=== PATIENT | male | born 1990 | race Caucasian/White ===

== ENCOUNTER 2017-09-20 09:07 | Observation (INO) | payer BC, OTHER ==
[2017-09-20] MEDS ORDERED: Ondansetron 4 MG/2 ML SDV IVPUSH ONE (09:45)
[2017-09-20] MEDS ORDERED: Sodium Chloride 0.9% 1,000 ML IV ONE ×2 (09:46→12:23)
[2017-09-20] MEDS ORDERED: Ondansetron 4 MG/2 ML SDV ONE (09:53)
--- NOTE | 2017-09-20 10:20 | EDM.PDOC ---
ED HPI GENERAL MEDICAL PROBLEM - General Chief Complaint: Gastrointestinal Problem Stated Complaint: VOMITING Time Seen by Provider: 09/20/17 09:49 Source of Information: Reports: Patient History Limitations: Reports: No Limitations - History of Present Illness INITIAL COMMENTS - FREE TEXT/NARRATIVE: The patient states that he has type 1 diabetes. He is on an insulin pump, and Accu-Cheks 3-5 times a day with normal preprandial blood glucoses of 100-130 and normal postprandial blood glucoses around 170. He states that he developed nausea, vomiting, and watery diarrhea this past 09/16/2017. He was seen at an emergency department in [place], where a CT scan of the abdomen and pelvis was negative for appendicitis. He was given Zofran and Imodium, which he took for about 2 days. He states that he was able to return to work yesterday, 09/19/2017, however, last night he developed a small amount of nausea and emesis. This was much worse this morning. He has not had a fever, although he has had generalized abdominal pain associated with his emesis. He also developed a dry cough today, and commented that he had an increased volume of urine today. He has not had a bowel movement over the past 3 days. The patient states that he has had similar symptoms many times in the past, which essentially resolved after he had a cholecystectomy in 2014. He has had DKA in the past, and states that his current symptoms, other than the emesis, are not consistent with prior episodes of DKA. The patient's PCP is Jesika Story. His Die Machine Operator is Dr. Villalba, in [place]. Abdomen Pain Score (Numeric/FACES): 4 - Related Data Allergies Allergy/AdvReac Type Severity Reaction Status Date / Time No Known Allergies Allergy Verified 09/01/14 16:14 Home Meds: Home Meds Famotidine [Pepcid] 20 mg PO DAILY PRN 08/19/14 [History] Insulin Aspart [NovoLOG] 0 units SUBCUT ASDIRECTED 09/20/17 [History] Ondansetron [Zofran ODT] 4 mg SL Q8H PRN 09/20/17 [History] Past Medical History Gastrointestinal History: Reports: GERD Psychiatric History: Reports: Depression Endocrine/Metabolic History: Reports: Diabetes, Type I, Obesity/BMI 30+ - Past Surgical History HEENT Surgical History: Reports: Myringotomy w Tube(s) (bilateral), Tonsillectomy GI Surgical History: Reports: Cholecystectomy (09/02/2014) Musculoskeletal Surgical History: Reports: Other (See Below) (Partial amputation right fifth finger) Social & Family History - Tobacco Use Smoking Status *Q: Never Smoker - Caffeine Use Caffeine Use: Reports: Tea - Alcohol Use Alcohol Use History: Yes Days Per Week of Alcohol Use: 0 Number of Drinks Per Day: 0 Total Drinks Per Week: 0 Alcohol Use Frequency: Socially - Recreational Drug Use Recreational Drug Use: No - Living Situation & Occupation Living situation: Reports: , with Spouse 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 ED EXAM, GENERAL - Physical Exam Exam: See Below Exam Limited By: No Limitations General Appearance: Alert, WD/WN, No Apparent Distress Eye Exam: Bilateral Eye: Normal Inspection Ears: Normal External Exam, Hearing Grossly Normal Nose: Normal Inspection, No Blood Throat/Mouth: Normal Inspection, Normal Lips, Normal Voice, No Airway Compromise Head: Atraumatic, Normocephalic Neck: Normal Inspection, Full Range of Motion Respiratory/Chest: No Respiratory Distress, Lungs Clear, Normal Breath Sounds, No Accessory Muscle Use Cardiovascular: Normal Peripheral Pulses, Regular Rate, Rhythm, No Gallop, No JVD, No Murmur, No Rub Peripheral Pulses: 4+: Radial (L), Radial (R) GI/Abdominal: Normal Bowel Sounds, Soft, Non-Tender, No Organomegaly, No Distention, No Abnormal Bruit, No Mass, Other (Obese) (Male) Exam: Deferred Rectal (Males) Exam: Deferred Back Exam: Normal Inspection, Full Range of Motion, NT Extremities: Normal Inspection, Normal Range of Motion, No Pedal Edema, Normal Capillary Refill Neurological: Alert, Oriented, Normal Cognition, No Motor/Sensory Deficits Psychiatric: Normal Affect Skin Exam: Warm, Dry, Intact, Normal Color, No Rash EKG INTERPRETATION EKG Date: 09/20/17 Time: 10:09 Rhythm: NSR Rate (Beats/Min): 67 [place]: Normal P-Wave: Present QRS: Normal ST-T: Normal QT: Normal Comparison: NA - No Prior EKG Course - Vital Signs Last Recorded V/S: Last Vital Signs Temp 36.6 C 09/20/17 09:20 Pulse 70 09/20/17 09:20 Resp 16 09/20/17 09:20 BP 133/94 H 09/20/17 09:20 Pulse Ox 99 09/20/17 09:20 Orthostatic Blood Pressure [ 146/85 Standing] Orthostatic Blood Pressure [ 142/93 Supine] - Orders/Labs/Meds Orders: Active Orders 24 hr Category Date Time Status EKG Documentation Completion [RC] STAT Care 09/20/17 09:53 Active Orthostatic Vital Signs [RC] STAT Care 09/20/17 09:53 Active Orthostatic Vital Signs [RC] STAT Care 09/20/17 11:50 Active CBC WITH MANUAL DIFF [HEME] Stat Lab 09/20/17 09:25 Results CULTURE BLOOD [BC] Stat Lab 09/20/17 10:19 Received CULTURE BLOOD [BC] Stat Lab 09/20/17 10:38 Received UA W/MICROSCOPIC [URIN] Stat Lab 09/20/17 09:30 Ordered Sodium Chloride 0.9% [Normal Saline] 1,000 ml Med 09/20/17 12:23 Ordered IV ONETIME Blood Culture x2 Reflex Set [OM.PC] Stat Oth 09/20/17 09:54 Ordered Labs: Laboratory Tests 09/20/17 09/20/17 09/20/17 Range/Units 09:25 09:25 09:25 WBC 7.18 (4.23-9.07) K/mm3 RBC 5.11 (4.63-6.08) M/mm3 Hgb 16.0 (13.7-17.5) gm/L Hct 43.9 (40.1-51.0) % MCV 85.9 (79.0-92.2) fl MCH 31.3 (25.7-32.2) pg MCHC 36.4 H (32.2-35.5) g/dl RDW Std Deviation 36.1 (35.1-43.9) fL Plt Count 243 (163-337) K/mm3 MPV 11.9 (9.4-12.3) fl Puncture Site ABG pH (7.35-7.45) ABG pCO2 (35.0-45.0) mmHg ABG pO2 (80.0-100.0) mmHg ABG HCO3 (22.0-26.0) meq/L ABG O2 Saturation (96.0-97.0) % ABG Base Excess (-2-2.0) Ollie Test A-a Gradient mmHg O2 Delivery Device FiO2 (21.00-100.00) % Sodium 142 (136-145) mEq/L Potassium 3.9 (3.5-5.1) mEq/L Chloride 104 (98-107) mEq/L Carbon Dioxide 21 (21-32) mEq/L Anion Gap 20.9 H (5-15) BUN 11 (7-18) mg/dL Creatinine 1.1 (0.7-1.3) mg/dL Est Cr Clr Drug Dosing 106.92 mL/min Estimated GFR (MDRD) > 60 (>60) mL/min BUN/Creatinine Ratio 10.0 L (14-18) Glucose 242 H (74-106) mg/dL Lactic Acid (0.4-2.0) mmol/L Calcium 9.5 (8.5-10.1) mg/dL Magnesium 1.2 L (1.8-2.4) mg/dl Total Bilirubin 0.7 (0.2-1.0) mg/dL AST 42 H (15-37) U/L ALT 194 H (16-63) U/L Alkaline Phosphatase 90 (46-116) U/L Total Protein 7.5 (6.4-8.2) g/dl Albumin 4.5 (3.4-5.0) g/dl Globulin 3.0 gm/dL Albumin/Globulin Ratio 1.5 (1-2) Lipase 62 L (73-393) U/L Urine Color (Yellow) Urine Appearance (Clear) Urine pH (5.0-8.0) Ur Specific Garrett (1.005-1.030) Urine Protein (Negative) Urine Glucose (UA) (Negative) Urine Ketones (Negative) Urine Occult Blood (Negative) Urine Nitrite (Negative) Urine Bilirubin (Negative) Urine Urobilinogen (0.2-1.0) Ur Leukocyte Esterase (Negative) Urine RBC (0-5) /hpf Urine WBC (0-5) /hpf Ur Epithelial Cells (0-5) /hpf Urine Bacteria (FEW) /hpf Urine Mucus (FEW) /hpf Ketones 0.7 (0.0-0.3) mM 09/20/17 09/20/17 09/20/17 Range/Units 09:30 10:07 10:19 WBC (4.23-9.07) K/mm3 RBC (4.63-6.08) M/mm3 Hgb (13.7-17.5) gm/L Hct (40.1-51.0) % MCV (79.0-92.2) fl MCH (25.7-32.2) pg MCHC (32.2-35.5) g/dl RDW Std Deviation (35.1-43.9) fL Plt Count (163-337) K/mm3 MPV (9.4-12.3) fl Puncture Site Lt radial ABG pH 7.48 H (7.35-7.45) ABG pCO2 27.3 L (35.0-45.0) mmHg ABG pO2 90.0 (80.0-100.0) mmHg ABG HCO3 20.1 L (22.0-26.0) meq/L ABG O2 Saturation 98.2 H (96.0-97.0) % ABG Base Excess -1.6 (-2-2.0) Ollie Test Positive A-a Gradient 10 mmHg O2 Delivery Device Room air FiO2 21.00 (21.00-100.00) % Sodium (136-145) mEq/L Potassium (3.5-5.1) mEq/L Chloride (98-107) mEq/L Carbon Dioxide (21-32) mEq/L Anion Gap (5-15) BUN (7-18) mg/dL Creatinine (0.7-1.3) mg/dL Est Cr Clr Drug Dosing mL/min Estimated GFR (MDRD) (>60) mL/min BUN/Creatinine Ratio (14-18) Glucose (74-106) mg/dL Lactic Acid 1.4 (0.4-2.0) mmol/L Calcium (8.5-10.1) mg/dL Magnesium (1.8-2.4) mg/dl Total Bilirubin (0.2-1.0) mg/dL AST (15-37) U/L ALT (16-63) U/L Alkaline Phosphatase (46-116) U/L Total Protein (6.4-8.2) g/dl Albumin (3.4-5.0) g/dl Globulin gm/dL Albumin/Globulin Ratio (1-2) Lipase (73-393) U/L Urine Color Yellow (Yellow) Urine Appearance Clear (Clear) Urine pH 7.0 (5.0-8.0) Ur Specific [place] 1.020 (1.005-1.030) Urine Protein Negative (Negative) Urine Glucose (UA) Trace H (Negative) Urine Ketones 1+ H (Negative) Urine Occult Blood Negative (Negative) Urine Nitrite Negative (Negative) Urine Bilirubin Negative (Negative) Urine Urobilinogen 0.2 (0.2-1.0) Ur Leukocyte Esterase Negative (Negative) Urine RBC Not seen (0-5) /hpf Urine WBC 0-5 (0-5) /hpf Ur Epithelial Cells 0-5 (0-5) /hpf Urine Bacteria Not seen (FEW) /hpf Urine Mucus Not seen (FEW) /hpf Ketones (0.0-0.3) mM Meds: Medications Discontinued Medications Generic Name Dose Route Start Last Admin Trade Name Freq PRN Reason Stop Dose Admin Sodium Chloride 1,000 mls @ 999 mls/hr 09/20/17 09:46 09/20/17 09:52 Normal Saline IV 09/20/17 10:46 999 mls/hr ONETIME ONE Administration Magnesium Sulfate 2 gm/ Premix 50 mls @ 50 mls/hr 09/20/17 10:57 09/20/17 11: 03 IV 09/20/17 11:56 50 mls/hr ONETIME ONE Administration Ondansetron HCl 4 mg 09/20/17 09:45 09/20/17 09:50 Zofran IVPUSH 09/20/17 09:46 4 mg ONETIME ONE Administration Ondansetron HCl Confirm 09/20/17 09:53 09/20/17 09:52 Zofran Administered 09/20/17 09:54 Not Given Dose 4 mg .ROUTE .STK-MED ONE - Re-Assessments/Exams Free Text/Narrative Re-Assessment/Exam: 09/20/17 10:05 The patient is orthostatic. 09/20/17 10:27 The patient's ABG represents either an [id number]-apttkoy respiratory alkalosis or a combined respiratory alkalosis and metabolic acidosis. 09/20/17 10:58 Portable chest radiograph appears to be grossly normal. Cardiac silhouette is within normal limits. No pulmonary vascular congestion. No pleural effusions. No focal infiltrate. No pneumothorax. Formal read per the Radiologist pending. 09/20/17 10:58 The patient's chemistry panel reveals a bicarbonate of 21, with an anion gap of 20.9, blood glucose 242. His magnesium is depressed at 1.2. Lactic acid and ketones are still pending. I have ordered a 2 g Mg-rider. 09/20/17 11:09 The patient's serum ketone level has returned mildly elevated at 0.7, consistent with ketosis, but not with ketoacidosis. 09/20/17 11:41 The patient's lactic acid level is not elevated. 09/20/17 12:24 Following 1 L NS, the patient is no longer orthostatic. Test results discussed with the patient, his , and mother. Patient is no longer orthostatic, recommended placement into observation for further hydration. The patient has agreed. 09/20/17 12:[address] Flores at 12:26. He agreed to place the patient into observation. Departure - Departure Time of Disposition: 12:28 Disposition: Refer to Observation Condition: Fair Clinical Impression: Orthostasis, Hypomagnesemia, Hyperglycemia due to type 1 diabetes mellitus, High anion gap metabolic acidosis Nausea and vomiting Qualifiers: Vomiting type: unspecified Vomiting Intractability: unspecified Qualified Code( s): R11.2 - Nausea with vomiting, unspecified - Discharge Information - My Orders Last 24 Hours: My Active Orders 09/20/17 09:25 CBC WITH MANUAL DIFF [HEME] Stat 09/20/17 09:30 UA W/MICROSCOPIC [URIN] Stat 09/20/17 09:53 EKG Documentation Completion [RC] STAT Orthostatic Vital Signs [RC] STAT 09/20/17 09:54 Blood Culture x2 Reflex Set [OM.PC] Stat 09/20/17 10:19 CULTURE BLOOD [BC] Stat 09/20/17 10:38 CULTURE BLOOD [BC] Stat 09/20/17 11:50 Orthostatic Vital Signs [RC] STAT 09/20/17 12:23 Sodium Chloride 0.9% [Normal Saline] 1,000 ml IV ONETIME - Assessment/Plan Last 24 Hours: My Active Orders 09/20/17 09:25 CBC WITH MANUAL DIFF [HEME] Stat 09/20/17 09:30 UA W/MICROSCOPIC [URIN] Stat 09/20/17 09:53 EKG Documentation Completion [RC] STAT Orthostatic Vital Signs [RC] STAT 09/20/17 09:54 Blood Culture x2 Reflex Set [OM.PC] Stat 09/20/17 10:19 CULTURE BLOOD [BC] Stat 09/20/17 10:38 CULTURE BLOOD [BC] Stat 09/20/17 11:50 Orthostatic Vital Signs [RC] STAT 09/20/17 12:23 Sodium Chloride 0.9% [Normal Saline] 1,000 ml IV ONETIME
[2017-09-20] MEDS ORDERED: Magnesium Sulfate/Water 2 GM in Premix Bag 1 BAG IV ONE (10:57)
--- NOTE | 2017-09-20 11:11 | CR ---
Chest: Portable view of the chest was obtained. Comparison: No prior chest x-ray. Heart size and mediastinum are normal. Lungs are clear. Bony structures are grossly intact. Impression: 1. Nothing acute is seen on portable chest x-ray. Diagnostic code #1
[2017-09-20] MEDS ORDERED: 50% Dextrose in Water 50 ML Syringe IVPUSH PRN (15:14)
[2017-09-20] MEDS ORDERED: Insulin Aspart 100 Units/ML 3 ML Pen SUBCUT SCH (15:15)
[2017-09-20] MEDS ORDERED: Famotidine 20 MG Tab PO PRN (15:15)
[2017-09-20] MEDS: Dextrose 5%-0.9% NaCl 1,000 ML IV SCH (15:16)
[2017-09-20] MEDS ORDERED: LORazepam 2 MG/ML SDV IVPUSH PRN (15:16)
[2017-09-20] MEDS ORDERED: hydrALAZINE 20 MG/ML SDV IVPUSH PRN (15:16)
--- NOTE | 2017-09-20 15:17 | PCM.HP ---
H&P History of Present Illness - General Date of Service: 09/20/17 Admit Problem/Dx: Admission Diagnosis/Problem Admission Diagnosis/Problem Orthostasis Source of Information: Patient, Family, Provider, RN Notes Reviewed History Limitations: Reports: No Limitations - History of Present Illness Onset of Symptoms: Reports: Sudden Symptom Onset Date: 09/16/17 (nausea, vomiting, and diarrhea) Duration of Symptoms: Reports: Day(s): (4 days), Colic, Intermittent, Recurring (09/19 symptoms gone today they are back without diarrhea) Location: Reports: Abdomen (across upper abd and epigastric region) Quality: Reports: Sharp Severity: Moderate Improves with: Reports: Eating (improves at times with eating) Associated Symptoms: Reports: Nausea/Vomiting Abdomen Pain Score (Numeric/FACES): 4 - Related Data Allergies/Adverse Reactions: Allergies Allergy/AdvReac Type Severity Reaction Status Date / Time No Known Allergies Allergy Verified 09/01/14 16:14 Home Medications: Home Meds Famotidine [Pepcid] 20 mg PO DAILY PRN 08/19/14 [History] Insulin Aspart [NovoLOG] 0 units SUBCUT ASDIRECTED 09/20/17 [History] Ondansetron [Zofran ODT] 4 mg SL Q8H PRN 09/20/17 [History] Past Medical History HEENT History: Reports: Impaired Vision, Other (See Below) Other HEENT History: glasses Respiratory History: Reports: None Gastrointestinal History: Reports: GERD Musculoskeletal History: Reports: Fracture, Other (See Below) Other Musculoskeletal History: 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; right foot fracture Neurological History: Reports: Concussion, Neuropathy, Diabetic Psychiatric History: Reports: Depression Endocrine/Metabolic History: Reports: Diabetes, Type I, Obesity/BMI 30+ Hematologic History: Reports: None Dermatologic History: Reports: Other (See Below) Other Dermatologic History: vitiligo - Infectious Disease History Infectious Disease History: Reports: Shingles - Past Surgical History HEENT Surgical History: Reports: Myringotomy w Tube(s), Tonsillectomy GI Surgical History: Reports: Cholecystectomy Male Surgical History: Reports: None Endocrine Surgical History: Reports: None Neurological Surgical History: Reports: None Musculoskeletal Surgical History: Reports: Other (See Below) Other Musculoskeletal Surgeries/Procedures:: 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 Dermatological Surgical History: Reports: Skin Biopsy - Past Imaging History Past Imaging History: Reports: CAT Scan (CT of abdomen and pelvis in [place]) Social & Family History - Family History Cardiac: Reports: Aneurysm, Hypertension, Other (See Below) Other Cardiac Family History: abdominal - Tobacco Use Smoking Status *Q: Never Smoker Second Hand Smoke Exposure: No - Caffeine Use Caffeine Use: Reports: Coffee, Tea - Alcohol Use Days Per Week of Alcohol Use: 3 Number of Drinks Per Day: 2 Total Drinks Per Week: 6 Date of Last Drink: 09/15/17 Time of Last Drink: 19:00 - Recreational Drug Use Recreational Drug Use: No Drug Use in Last 12 Months: No - Living Situation & Occupation Living situation: Reports: , with Spouse 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) H&P Review of Systems - Review of Systems: Review Of Systems: See Below Gastrointestinal: Reports: Abdominal Pain, Flatus, Nausea, Vomiting Skin: Reports: Pallor Exam - Exam Exam: See Below - Vital Signs Vital Signs: Last Vital Signs Temp 36.6 C 09/20/17 13:33 Pulse 74 09/20/17 13:33 Resp 14 09/20/17 13:33 BP 130/78 09/20/17 13:33 Pulse Ox 100 09/20/17 13:33 Orthostatic Blood Pressure [ 146/85 Standing] Orthostatic Blood Pressure [ 142/93 Supine] Weight: 116.029 kg - Exam General: Alert, Oriented, Mild Distress HEENT: Conjunctiva Clear, Mucosa Moist & [place], Nares Patent, Normal Nasal Septum Neck: Supple, Trachea Midline, Full Range of Motion Lungs: Clear to Auscultation, Normal Respiratory Effort Cardiovascular: Regular Rate, Regular Rhythm, Normal S1, Normal S2 GI/Abdominal Exam: Normal Bowel Sounds, Soft, No Mass, Rebound, Tender (Male) Exam: Deferred Rectal (Males) Exam: Deferred Back Exam: Normal Inspection, Full Range of Motion Extremities: Normal Inspection, Normal Range of Motion, Non-Tender, No Pedal Edema, Normal Capillary Refill Peripheral Pulses: 2+: Dorsalis Pedis (L), Dorsalis Pedis (R), 3+: Radial (L), Radial (R) Skin: Warm, Dry, Intact Neurological: Cranial Nerves Intact, Strength Equal Bilateral, Normal Speech, Sensation Intact Neuro Extensive - Mental Status: Alert, Oriented x3, Normal Mood/Affect, Normal Cognition, Memory Intact Psychiatric: Alert, Normal Affect, Normal Mood - Patient Data Lab Results Last 24 hrs: Laboratory Results - last 24 hr 09/20/17 09/20/17 09/20/17 Range/Units 09:25 09:25 09:25 WBC 7.18 (4.23-9.07) K/mm3 RBC 5.11 (4.63-6.08) M/mm3 Hgb 16.0 (13.7-17.5) gm/L Hct 43.9 (40.1-51.0) % MCV 85.9 (79.0-92.2) fl MCH 31.3 (25.7-32.2) pg MCHC 36.4 H (32.2-35.5) g/dl RDW Std Deviation 36.1 (35.1-43.9) fL Plt Count 243 (163-337) K/mm3 MPV 11.9 (9.4-12.3) fl Neutrophils % (Manual) 75 H (40-60) % Band Neutrophils % 2 (0-10) % Lymphocytes % (Manual) 22 (20-40) % Atypical Lymphs % 0 % Monocytes % (Manual) 1 L (2-10) % Eosinophils % (Manual) 0 L (0.8-7.0) % Basophils % (Manual) 0 L (0.2-1.2) Platelet Estimate Adequate RBC Morph Comment Normal Puncture Site ABG pH (7.35-7.45) ABG pCO2 (35.0-45.0) mmHg ABG pO2 (80.0-100.0) mmHg ABG HCO3 (22.0-26.0) meq/L ABG O2 Saturation (96.0-97.0) % ABG Base Excess (-2-2.0) Ollie Test A-a Gradient mmHg O2 Delivery Device FiO2 (21.00-100.00) % Sodium 142 (136-145) mEq/L Potassium 3.9 (3.5-5.1) mEq/L Chloride 104 (98-107) mEq/L Carbon Dioxide 21 (21-32) mEq/L Anion Gap 20.9 H (5-15) BUN 11 (7-18) mg/dL Creatinine 1.1 (0.7-1.3) mg/dL Est Cr Clr Drug Dosing 106.92 mL/min Estimated GFR (MDRD) > 60 (>60) mL/min BUN/Creatinine Ratio 10.0 L (14-18) Glucose 242 H (74-106) mg/dL POC Glucose (70-105) mg/dL Lactic Acid (0.4-2.0) mmol/L Calcium 9.5 (8.5-10.1) mg/dL Magnesium 1.2 L (1.8-2.4) mg/dl Total Bilirubin 0.7 (0.2-1.0) mg/dL AST 42 H (15-37) U/L ALT 194 H (16-63) U/L Alkaline Phosphatase 90 (46-116) U/L Total Protein 7.5 (6.4-8.2) g/dl Albumin 4.5 (3.4-5.0) g/dl Globulin 3.0 gm/dL Albumin/Globulin Ratio 1.5 (1-2) Lipase 62 L (73-393) U/L Urine Color (Yellow) Urine Appearance (Clear) Urine pH (5.0-8.0) Ur Specific [place] (1.005-1.030) Urine Protein (Negative) Urine Glucose (UA) (Negative) Urine Ketones (Negative) Urine Occult Blood (Negative) Urine Nitrite (Negative) Urine Bilirubin (Negative) Urine Urobilinogen (0.2-1.0) Ur Leukocyte Esterase (Negative) Urine RBC (0-5) /hpf Urine WBC (0-5) /hpf Ur Epithelial Cells (0-5) /hpf Urine Bacteria (FEW) /hpf Urine Mucus (FEW) /hpf Ketones 0.7 (0.0-0.3) mM 09/20/17 09/20/17 09/20/17 Range/Units 09:25 09:30 10:07 WBC (4.23-9.07) K/mm3 RBC (4.63-6.08) M/mm3 Hgb (13.7-17.5) gm/L Hct (40.1-51.0) % MCV (79.0-92.2) fl MCH (25.7-32.2) pg MCHC (32.2-35.5) g/dl RDW Std Deviation (35.1-43.9) fL Plt Count (163-337) K/mm3 MPV (9.4-12.3) fl Neutrophils % (Manual) (40-60) % Band Neutrophils % (0-10) % Lymphocytes % (Manual) (20-40) % Atypical Lymphs % % Monocytes % (Manual) (2-10) % Eosinophils % (Manual) (0.8-7.0) % Basophils % (Manual) (0.2-1.2) Platelet Estimate RBC Morph Comment Puncture Site Lt radial ABG pH 7.48 H (7.35-7.45) ABG pCO2 27.3 L (35.0-45.0) mmHg ABG pO2 90.0 (80.0-100.0) mmHg ABG HCO3 20.1 L (22.0-26.0) meq/L ABG O2 Saturation 98.2 H (96.0-97.0) % ABG Base Excess -1.6 (-2-2.0) Ollie Test Positive A-a Gradient 10 mmHg O2 Delivery Device Room air FiO2 21.00 (21.00-100.00) % Sodium (136-145) mEq/L Potassium (3.5-5.1) mEq/L Chloride (98-107) mEq/L Carbon Dioxide (21-32) mEq/L Anion Gap (5-15) BUN (7-18) mg/dL Creatinine (0.7-1.3) mg/dL Est Cr Clr Drug Dosing mL/min Estimated GFR (MDRD) (>60) mL/min BUN/Creatinine Ratio (14-18) Glucose (74-106) mg/dL POC Glucose 239 H (70-105) mg/dL Lactic Acid (0.4-2.0) mmol/L Calcium (8.5-10.1) mg/dL Magnesium (1.8-2.4) mg/dl Total Bilirubin (0.2-1.0) mg/dL AST (15-37) U/L ALT (16-63) U/L Alkaline Phosphatase (46-116) U/L Total Protein (6.4-8.2) g/dl Albumin (3.4-5.0) g/dl Globulin gm/dL Albumin/Globulin Ratio (1-2) Lipase (73-393) U/L Urine Color Yellow (Yellow) Urine Appearance Clear (Clear) Urine pH 7.0 (5.0-8.0) Ur Specific [place] 1.020 (1.005-1.030) Urine Protein Negative (Negative) Urine Glucose (UA) Trace H (Negative) Urine Ketones 1+ H (Negative) Urine Occult Blood Negative (Negative) Urine Nitrite Negative (Negative) Urine Bilirubin Negative (Negative) Urine Urobilinogen 0.2 (0.2-1.0) Ur Leukocyte Esterase Negative (Negative) Urine RBC Not seen (0-5) /hpf Urine WBC 0-5 (0-5) /hpf Ur Epithelial Cells 0-5 (0-5) /hpf Urine Bacteria Not seen (FEW) /hpf Urine Mucus Not seen (FEW) /hpf Ketones (0.0-0.3) mM 09/20/17 Range/Units 10:19 WBC (4.23-9.07) K/mm3 RBC (4.63-6.08) M/mm3 Hgb (13.7-17.5) gm/L Hct (40.1-51.0) % MCV (79.0-92.2) fl MCH (25.7-32.2) pg MCHC (32.2-35.5) g/dl RDW Std Deviation (35.1-43.9) fL Plt Count (163-337) K/mm3 MPV (9.4-12.3) fl Neutrophils % (Manual) (40-60) % Band Neutrophils % (0-10) % Lymphocytes % (Manual) (20-40) % Atypical Lymphs % % Monocytes % (Manual) (2-10) % Eosinophils % (Manual) (0.8-7.0) % Basophils % (Manual) (0.2-1.2) Platelet Estimate RBC Morph Comment Puncture Site ABG pH (7.35-7.45) ABG pCO2 (35.0-45.0) mmHg ABG pO2 (80.0-100.0) mmHg ABG HCO3 (22.0-26.0) meq/L ABG O2 Saturation (96.0-97.0) % ABG Base Excess (-2-2.0) Ollie Test A-a Gradient mmHg O2 Delivery Device FiO2 (21.00-100.00) % Sodium (136-145) mEq/L Potassium (3.5-5.1) mEq/L Chloride (98-107) mEq/L Carbon Dioxide (21-32) mEq/L Anion Gap (5-15) BUN (7-18) mg/dL Creatinine (0.7-1.3) mg/dL Est Cr Clr Drug Dosing mL/min Estimated GFR (MDRD) (>60) mL/min BUN/Creatinine Ratio (14-18) Glucose (74-106) mg/dL POC Glucose (70-105) mg/dL Lactic Acid 1.4 (0.4-2.0) mmol/L Calcium (8.5-10.1) mg/dL Magnesium (1.8-2.4) mg/dl Total Bilirubin (0.2-1.0) mg/dL AST (15-37) U/L ALT (16-63) U/L Alkaline Phosphatase (46-116) U/L Total Protein (6.4-8.2) g/dl Albumin (3.4-5.0) g/dl Globulin gm/dL Albumin/Globulin Ratio (1-2) Lipase (73-393) U/L Urine Color (Yellow) Urine Appearance (Clear) Urine pH (5.0-8.0) Ur Specific [place] (1.005-1.030) Urine Protein (Negative) Urine Glucose (UA) (Negative) Urine Ketones (Negative) Urine Occult Blood (Negative) Urine Nitrite (Negative) Urine Bilirubin (Negative) Urine Urobilinogen (0.2-1.0) Ur Leukocyte Esterase (Negative) Urine RBC (0-5) /hpf Urine WBC (0-5) /hpf Ur Epithelial Cells (0-5) /hpf Urine Bacteria (FEW) /hpf Urine Mucus (FEW) /hpf Ketones (0.0-0.3) mM Result Diagrams: 09/20/17 09:25 09/20/17 09:25 *Q Meaningful Use (ADM) - VTE Risk Assess *Q Each Risk Factor Represents 1 Point: Obesity ( BMI > 25 kg/m2) Total Score 1 Point Risk Factors: 1 Each Risk Factor Represents 2 Points: None Total Score 2 Point Risk Factors: 0 Each Risk Factor Represents 3 Points: None Total Score 3 Point Risk Factors: 0 Each Risk Factor Represents 5 Points: None Total Score 5 Point Risk Factors: 0 Venous Thromboembolism Risk Factor Score *Q: 1 Problem List Initiated/Reviewed/Updated: Yes Orders Last 24hrs: Active Orders 24 hr Category Date Time Status Admission Status [Patient Status] [ADT] Routine ADT 09/20/17 12:58 Active EKG Documentation Completion [RC] STAT Care 09/20/17 09:53 Active Orthostatic Vital Signs [RC] STAT Care 09/20/17 09:53 Active Orthostatic Vital Signs [RC] STAT Care 09/20/17 11:50 Active CULTURE BLOOD [BC] Stat Lab 09/20/17 10:19 Received CULTURE BLOOD [BC] Stat Lab 09/20/17 10:38 Received UA W/MICROSCOPIC [URIN] Stat Lab 09/20/17 09:30 Ordered Dextrose 5%-0.9% NaCl [Dextrose 5%-Normal Saline] 1,000 Med 09/20/17 15:15 Active ml IV ASDIRECTED Famotidine [Pepcid] Med 09/20/17 15:14 Ordered 20 mg PO DAILY PRN Insulin Aspart Med 09/20/17 15:15 Ordered See Dose Instructions SUBCUT ASDIRECTED LORazepam [Ativan] Med 09/20/17 15:16 Ordered 2 mg IVPUSH Q4H PRN Magnesium Rep Pharmacy to Dose [Pharmacy to Dose - Med 09/20/17 15:30 Ordered Magnesium Replacement] 1 dose .XX ASDIRECTED Ondansetron [Zofran ODT] Med 09/20/17 15:14 Ordered 4 mg SL Q8H PRN Potassium Rep Pharmacy to Dose [Pharmacy to Dose - Med 09/20/17 15:30 Ordered Potassium Replacement] 1 dose .XX ASDIRECTED hydrALAZINE [Apresoline] Med 09/20/17 15:16 Ordered 20 mg IVPUSH Q4H PRN Blood Culture x2 Reflex Set [OM.PC] Stat Oth 09/20/17 09:54 Ordered Resuscitation Status Routine Resus Stat 09/20/17 13:41 Ordered Medication Orders Dextrose/Sodium Chloride (Dextrose 5%-Normal Saline) 1,000 mls @ 100 mls/hr IV ASDIRECTED TOM Non-Formulary Medication (Famotidine [Pepcid]) 20 mg PO DAILY PRN PRN Reason: Heartburn Non-Formulary Medication (Insulin Aspart) 0 units SUBCUT ASDIRECTED TOM Non-Formulary Medication (Ondansetron [Zofran Odt]) 4 mg SL Q8H PRN PRN Reason: Nausea Assessment/Plan Comment:: Assessment/plan: Acute: Abdominal Pain - Likely 2/2 Gastroenteritis - Reports abdominal discomfort rating 4/10 in epigastric region and across upper abdomen - Nausea, vomiting and diarrhea; dry heaves at this time - Diabetic type 1 for past 20 years has insulin pump - CT scan in [place] was negative per patient report; requested report from [place] - WBC - 7.18; Lipase 62; lactic acid 1.4 - NPO excepts chips and meds - DDx: Gastroparesis (23 year hx/o DM1) Diabetes Type 1 w/ Hyperglycemia - Long standing hx/o ~21 years (diagnosed when he was 6 years old) - Insulin pump with glucose monitor checks randomly during the day. Does alarm with changes in his glucose - BS 242 in ED - Hypoglycemia on MSP 59 --> 40 basal rate 1.6 with bolus as needed. Glucose tab taken per patients own supply - IV fluids started D5W .9 NS @ 100 ml per hour. Refused d50 bolus because of hyperglycemia response - Glucose checks q6 hr; patient to use own insulin pump Hypomagnesemia - 2/2 inadequate intake - Mag 1.2 replaced with 4 gm of magnesium - Monitor Labs Chronic: DM Type 1 w/ Peripheral Neuropathy GERD Plan: Admit to the Floor Routine AM Labs Resume Home Meds Clear liquids diet in AM if asymptomatic PRN anti-emesis Monitor for e-lytes abnormality Will obtain imaging studies in [facility] Goal: D/c once able to tolerate meals
[2017-09-20] MEDS ORDERED: 50% Dextrose in Water 50 ML Syringe ONE (15:20)
[2017-09-20] MEDS ORDERED: Ondansetron 4 MG Tab.DIS PO PRN (15:30)
[2017-09-20] MEDS: Magnesium Sulfate/Water 2 GM in Premix Bag 1 BAG IV SCH ×2 (16:52→16:56)
[2017-09-20] MEDS ORDERED: Ondansetron 4 MG/2 ML SDV IV PRN (17:16)
[2017-09-20] MEDS ORDERED: Albuterol/Ipratropium 3.0-0.5 MG/3 ML Neb Soln NEB PRN (17:16)
[2017-09-20] MEDS ORDERED: Pantoprazole 40 MG Vial IVPUSH ONE (17:16)
[2017-09-20] MEDS ORDERED: Acetaminophen/HYDROcodone 325-5 MG Tab PO PRN (17:16)
[2017-09-20] MEDS ORDERED: HYDROmorphone 0.5 MG/0.5 ML SYRINGE IVPUSH PRN (17:16)
[2017-09-20] MEDS ORDERED: Acetaminophen 325 MG Tab PO PRN (17:16)
[2017-09-20] MEDS ORDERED: Temazepam 15 MG Cap PO PRN (17:16)
[2017-09-20] MEDS ORDERED: Promethazine 12.5 MG in Sodium Chloride 0.9% 50 ML IV PRN (17:16)
[2017-09-20] MEDS ORDERED: Scopolamine 1.5 MG Transdermal Patch TRDERM ONE (17:20)
[2017-09-21] MEDS: Dextrose 5%-0.9% NaCl 1,000 ML IV SCH (01:21)
--- NOTE | 2017-09-21 11:02 | PCM.PN ---
- General Info Date of Service: 09/21/17 Admission Dx/Problem (Free Text): Admission Diagnosis/Problem Admission Diagnosis/Problem Orthostasis Functional Status: Reports: Pain Controlled, Tolerating Diet, Ambulating, Urinating - Review of Systems General: Reports: No Symptoms. Denies: Fever, Chills HEENT: Reports: No Symptoms Pulmonary: Reports: No Symptoms Cardiovascular: Reports: No Symptoms. Denies: Chest Pain Gastrointestinal: Reports: Abdominal Pain (epigastric), Diarrhea, Flatus, Nausea , Vomiting. Denies: Hematochezia Genitourinary: Reports: No Symptoms. Denies: Dysuria, Frequency, Burning, Pain Musculoskeletal: Reports: No Symptoms Skin: Reports: No Symptoms Neurological: Reports: No Symptoms Psychiatric: Reports: No Symptoms - Patient Data Vitals - Most Recent: Last Vital Signs Temp 98.2 F 09/21/17 04:09 Pulse 65 09/21/17 04:09 Resp 16 09/21/17 04:09 BP 128/95 H 09/21/17 04:09 Pulse Ox 96 09/21/17 04:09 Orthostatic Blood Pressure [ 146/85 Standing] Orthostatic Blood Pressure [ 142/93 Supine] Weight - Most Recent: 253 lb 8 oz I&O - Last 24 Hours: Intake & Output 09/20/17 09/21/17 09/21/17 22:59 06:59 14:59 Intake Total 200 1561 440 Output Total 200 900 Balance 0 661 440 Lab Results Last 24 Hours: Laboratory Results - last 24 hr 09/20/17 09/20/17 09/20/17 Range/Units 09:25 09:25 09:25 WBC (4.23-9.07) K/mm3 RBC (4.63-6.08) M/mm3 Hgb (13.7-17.5) gm/L Hct (40.1-51.0) % MCV (79.0-92.2) fl MCH (25.7-32.2) pg MCHC (32.2-35.5) g/dl RDW Std Deviation (35.1-43.9) fL Plt Count (163-337) K/mm3 MPV (9.4-12.3) fl Neut % (Auto) (34.0-67.9) % Lymph % (Auto) (21.8-53.1) % Mower % (Auto) (5.3-12.2) % Eos % (Auto) (0.8-7.0) Baso % (Auto) (0.1-1.2) % Neut # (Auto) (1.78-5.38) K/mm3 Lymph # (Auto) (1.32-3.57) K/mm3 Mower # (Auto) (0.30-0.82) K/mm3 Eos # (Auto) (0.04-0.54) K/mm3 Baso # (Auto) (0.01-0.08) K/mm3 Neutrophils % (Manual) 75 H (40-60) % Band Neutrophils % 2 (0-10) % Lymphocytes % (Manual) 22 (20-40) % Atypical Lymphs % 0 % Monocytes % (Manual) 1 L (2-10) % Eosinophils % (Manual) 0 L (0.8-7.0) % Basophils % (Manual) 0 L (0.2-1.2) Platelet Estimate Adequate RBC Morph Comment Normal Sodium (136-145) mEq/L Potassium (3.5-5.1) mEq/L Chloride (98-107) mEq/L Carbon Dioxide (21-32) mEq/L Anion Gap (5-15) BUN (7-18) mg/dL Creatinine (0.7-1.3) mg/dL Est Cr Clr Drug Dosing mL/min Estimated GFR (MDRD) (>60) mL/min BUN/Creatinine Ratio (14-18) Glucose (74-106) mg/dL POC Glucose 239 H (70-105) mg/dL Hemoglobin A1c 6.30 H (4.50-6.20) % Lactic Acid (0.4-2.0) mmol/L Calcium (8.5-10.1) mg/dL Magnesium (1.8-2.4) mg/dl C-Reactive Protein (<1.0) mg/dL 09/20/17 09/20/17 09/20/17 Range/Units 10:19 15:12 17:02 WBC (4.23-9.07) K/mm3 RBC (4.63-6.08) M/mm3 Hgb (13.7-17.5) gm/L Hct (40.1-51.0) % MCV (79.0-92.2) fl MCH (25.7-32.2) pg MCHC (32.2-35.5) g/dl RDW Std Deviation (35.1-43.9) fL Plt Count (163-337) K/mm3 MPV (9.4-12.3) fl Neut % (Auto) (34.0-67.9) % Lymph % (Auto) (21.8-53.1) % Mower % (Auto) (5.3-12.2) % Eos % (Auto) (0.8-7.0) Baso % (Auto) (0.1-1.2) % Neut # (Auto) (1.78-5.38) K/mm3 Lymph # (Auto) (1.32-3.57) K/mm3 Mower # (Auto) (0.30-0.82) K/mm3 Eos # (Auto) (0.04-0.54) K/mm3 Baso # (Auto) (0.01-0.08) K/mm3 Neutrophils % (Manual) (40-60) % Band Neutrophils % (0-10) % Lymphocytes % (Manual) (20-40) % Atypical Lymphs % % Monocytes % (Manual) (2-10) % Eosinophils % (Manual) (0.8-7.0) % Basophils % (Manual) (0.2-1.2) Platelet Estimate RBC Morph Comment Sodium (136-145) mEq/L Potassium (3.5-5.1) mEq/L Chloride (98-107) mEq/L Carbon Dioxide (21-32) mEq/L Anion Gap (5-15) BUN (7-18) mg/dL Creatinine (0.7-1.3) mg/dL Est Cr Clr Drug Dosing mL/min Estimated GFR (MDRD) (>60) mL/min BUN/Creatinine Ratio (14-18) Glucose (74-106) mg/dL POC Glucose 40 L 109 H (70-105) mg/dL Hemoglobin A1c (4.50-6.20) % Lactic Acid 1.4 (0.4-2.0) mmol/L Calcium (8.5-10.1) mg/dL Magnesium (1.8-2.4) mg/dl C-Reactive Protein (<1.0) mg/dL 09/20/17 09/21/17 09/21/17 Range/Units 21:43 06:12 06:23 WBC 4.29 (4.23-9.07) K/mm3 RBC 4.52 L (4.63-6.08) M/mm3 Hgb 14.1 (13.7-17.5) gm/L Hct 40.3 (40.1-51.0) % MCV 89.2 (79.0-92.2) fl MCH 31.2 (25.7-32.2) pg MCHC 35.0 (32.2-35.5) g/dl RDW Std Deviation 38.4 (35.1-43.9) fL Plt Count 210 (163-337) K/mm3 MPV 11.2 (9.4-12.3) fl Neut % (Auto) 52.4 (34.0-67.9) % Lymph % (Auto) 35.7 (21.8-53.1) % Mower % (Auto) 9.8 (5.3-12.2) % Eos % (Auto) 1.4 (0.8-7.0) Baso % (Auto) 0.5 (0.1-1.2) % Neut # (Auto) 2.25 (1.78-5.38) K/mm3 Lymph # (Auto) 1.53 (1.32-3.57) K/mm3 Mower # (Auto) 0.42 (0.30-0.82) K/mm3 Eos # (Auto) 0.06 (0.04-0.54) K/mm3 Baso # (Auto) 0.02 (0.01-0.08) K/mm3 Neutrophils % (Manual) (40-60) % Band Neutrophils % (0-10) % Lymphocytes % (Manual) (20-40) % Atypical Lymphs % % Monocytes % (Manual) (2-10) % Eosinophils % (Manual) (0.8-7.0) % Basophils % (Manual) (0.2-1.2) Platelet Estimate RBC Morph Comment Sodium (136-145) mEq/L Potassium (3.5-5.1) mEq/L Chloride (98-107) mEq/L Carbon Dioxide (21-32) mEq/L Anion Gap (5-15) BUN (7-18) mg/dL Creatinine (0.7-1.3) mg/dL Est Cr Clr Drug Dosing mL/min Estimated GFR (MDRD) (>60) mL/min BUN/Creatinine Ratio (14-18) Glucose (74-106) mg/dL POC Glucose 93 115 H (70-105) mg/dL Hemoglobin A1c (4.50-6.20) % Lactic Acid (0.4-2.0) mmol/L Calcium (8.5-10.1) mg/dL Magnesium (1.8-2.4) mg/dl C-Reactive Protein (<1.0) mg/dL 09/21/17 09/21/17 Range/Units 06:23 10:49 WBC (4.23-9.07) K/mm3 RBC (4.63-6.08) M/mm3 Hgb (13.7-17.5) gm/L Hct (40.1-51.0) % MCV (79.0-92.2) fl MCH (25.7-32.2) pg MCHC (32.2-35.5) g/dl RDW Std Deviation (35.1-43.9) fL Plt Count (163-337) K/mm3 MPV (9.4-12.3) fl Neut % (Auto) (34.0-67.9) % Lymph % (Auto) (21.8-53.1) % Mower % (Auto) (5.3-12.2) % Eos % (Auto) (0.8-7.0) Baso % (Auto) (0.1-1.2) % Neut # (Auto) (1.78-5.38) K/mm3 Lymph # (Auto) (1.32-3.57) K/mm3 Mower # (Auto) (0.30-0.82) K/mm3 Eos # (Auto) (0.04-0.54) K/mm3 Baso # (Auto) (0.01-0.08) K/mm3 Neutrophils % (Manual) (40-60) % Band Neutrophils % (0-10) % Lymphocytes % (Manual) (20-40) % Atypical Lymphs % % Monocytes % (Manual) (2-10) % Eosinophils % (Manual) (0.8-7.0) % Basophils % (Manual) (0.2-1.2) Platelet Estimate RBC Morph Comment Sodium 141 (136-145) mEq/L Potassium 4.1 (3.5-5.1) mEq/L Chloride 110 H (98-107) mEq/L Carbon Dioxide 24 (21-32) mEq/L Anion Gap 11.1 (5-15) BUN 9 (7-18) mg/dL Creatinine 1.0 (0.7-1.3) mg/dL Est Cr Clr Drug Dosing 117.61 mL/min Estimated GFR (MDRD) > 60 (>60) mL/min BUN/Creatinine Ratio 9.0 L (14-18) Glucose 137 H (74-106) mg/dL POC Glucose 96 (70-105) mg/dL Hemoglobin A1c (4.50-6.20) % Lactic Acid (0.4-2.0) mmol/L Calcium 8.7 (8.5-10.1) mg/dL Magnesium 2.1 (1.8-2.4) mg/dl C-Reactive Protein < 0.2 (<1.0) mg/dL Herb Results Last 24 Hours: Microbiology 09/20/17 10:19 Aerobic Blood Culture - Preliminary Blood - Venous NO GROWTH AFTER 1 DAY Anaerobic Blood Culture - Preliminary NO GROWTH AFTER 1 DAY 09/20/17 10:38 Aerobic Blood Culture - Preliminary Blood - Venous - Lab Draw NO GROWTH AFTER 1 DAY Anaerobic Blood Culture - Preliminary NO GROWTH AFTER 1 DAY Med Orders - Current: Current Medications Acetaminophen (Tylenol) 650 mg PO Q4H PRN PRN Reason: Pain (Mild 1-3)/fever Hydrocodone Bitart/Acetaminophen (Terry 325-5 Mg) 1 tab PO Q4H PRN PRN Reason: Pain (moderate 4-6) Albuterol/Ipratropium (Duoneb 3.0-0.5 Mg/3 Ml) 3 ml NEB Q4H PRN PRN Reason: Shortness Of Breath/wheezing Dextrose/Water (Dextrose 50% In Water) 50 ml IVPUSH ASDIRECTED PRN PRN Reason: Hypoglycemia Famotidine (Pepcid) 20 mg PO DAILY PRN PRN Reason: HEARTBURN Hydralazine HCl (Apresoline) 20 mg IVPUSH Q4H PRN PRN Reason: Hypertension Hydromorphone HCl (Dilaudid) 0.5 mg IVPUSH Q2H PRN PRN Reason: Pain (severe 7-10) Dextrose/Sodium Chloride (Dextrose 5%-Normal Saline) 1,000 mls @ 100 mls/hr IV ASDIRECTED [facility] Last Admin: 09/21/17 01:21 Dose: 100 mls/hr Promethazine HCl 12.5 mg/ (Sodium Chloride) 50.5 mls @ 100 mls/hr IV Q6H PRN PRN Reason: Nausea/Vomiting Insulin Aspart (Novolog) 0 unit SUBCUT ASDIRECTED [facility] Lorazepam (Ativan) 2 mg IVPUSH Q4H PRN PRN Reason: Seizures Magnesium Sulfate (Pharmacy To Dose - Magnesium Replacement) 1 dose .XX ASDIRECTED [facility] Ondansetron HCl (Zofran Odt) 4 mg PO Q8H PRN PRN Reason: NAUSEA Ondansetron HCl (Zofran) 4 mg IV Q6H PRN PRN Reason: Nausea/Vomiting Potassium Chloride (Pharmacy To Dose - Potassium Replacement) 1 dose .XX ASDIRECTED [facility] Temazepam (Restoril) 15 mg PO BEDTIME PRN PRN Reason: Sleep Last Admin: 09/20/17 21:49 Dose: 15 mg Discontinued Medications Dextrose/Water (Dextrose 50% In Water) Confirm Administered Dose 50 ml .ROUTE .STK-MED ONE Stop: 09/20/17 15:21 Last Admin: 09/20/17 15:48 Dose: Not Given Sodium Chloride (Normal Saline) 1,000 mls @ 999 mls/hr IV ONETIME ONE Stop: 09/20/17 10:46 Last Admin: 09/20/17 09:52 Dose: 999 mls/hr Magnesium Sulfate 2 gm/ Premix 50 mls @ 50 mls/hr IV ONETIME ONE Stop: 09/20/17 11:56 Last Admin: 09/20/17 11:03 Dose: 50 mls/hr Sodium Chloride (Normal Saline) 1,000 mls @ 999 mls/hr IV ONETIME ONE Stop: 09/20/17 13:23 Last Admin: 09/20/17 12:30 Dose: 999 mls/hr Magnesium Sulfate 2 gm/ Premix 50 mls @ 25 mls/hr IV Q2H TOM Stop: 09/20/17 19:29 Last Admin: 09/20/17 16:56 Dose: Not Given Ondansetron HCl (Zofran) 4 mg IVPUSH ONETIME ONE Stop: 09/20/17 09:46 Last Admin: 09/20/17 09:50 Dose: 4 mg Ondansetron HCl (Zofran) Confirm Administered Dose 4 mg .ROUTE .STK-MED ONE Stop: 09/20/17 09:54 Last Admin: 09/20/17 09:52 Dose: Not Given Pantoprazole Sodium (Protonix Iv) 40 mg IVPUSH ONETIME ONE Stop: 09/20/17 17:17 Last Admin: 09/20/17 17:52 Dose: 40 mg Scopolamine (Transderm-Scop) 1.5 mg TRDERM Q72H ONE Stop: 09/20/17 17:21 Last Admin: 09/20/17 17:50 Dose: 1.5 mg - Exam Quality Assessment: DVT Prophylaxis General: Alert, Oriented, Mild Distress HEENT: Pupils Equal, Pupils Reactive, EOMI, Mucous Membr. Moist/August Neck: Supple Lungs: Clear to Auscultation, Normal Respiratory Effort Cardiovascular: Regular Rate, Regular Rhythm GI/Abdominal Exam: Normal Bowel Sounds, Soft, Non-Tender, No Mass (Male) Exam: Deferred Back Exam: Normal Inspection, Full Range of Motion Extremities: Normal Inspection, Normal Range of Motion, Non-Tender, No Pedal Edema, Normal Capillary Refill Peripheral Pulses: 2+: Posterior Tibial (L), Posterior Tibial (R), Dorsalis Pedis (L), Dorsalis Pedis (R) Skin: Warm, Dry, Intact Neurological: No New Focal Deficit Psy/Mental Status: Alert, Normal Affect, Normal Mood - Problem List & Annotations (1) Diabetes type I SNOMED Code(s): 78289645 Code(s): E10.9 - TYPE 1 DIABETES MELLITUS WITHOUT COMPLICATIONS Status: Chronic Priority: Medium Current Visit: Yes Qualifiers: Diabetes mellitus complication status: with neurologic complications Diabetes mellitus complication detail: with unspecified neuropathy Qualified Code(s): E10.40 - Type 1 diabetes mellitus with diabetic neuropathy, unspecified (2) Hypomagnesemia SNOMED Code(s): 864934862 Code(s): E83.42 - HYPOMAGNESEMIA Status: Acute Priority: Medium Current Visit: Yes (3) Nausea & vomiting SNOMED Code(s): 28959899 Code(s): R11.2 - NAUSEA WITH VOMITING, UNSPECIFIED Status: Acute Priority : High Current Visit: Yes Qualifiers: Vomiting type: unspecified Vomiting Intractability: unspecified Qualified Code(s): R11.2 - Nausea with vomiting, unspecified (4) Abdominal pain SNOMED Code(s): 32241284 Code(s): R10.9 - UNSPECIFIED ABDOMINAL PAIN Status: Acute Priority: High Current Visit: Yes (5) 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 SNOMED Code(s): 93198141147553 Code(s): E10.22 - TYPE 1 DIABETES MELLITUS W DIABETIC CHRONIC KIDNEY DISEASE ; N18.2 - CHRONIC KIDNEY DISEASE, STAGE 2 (MILD) Status: Chronic Priority: Medium Current Visit: Yes - Problem List Review Problem List Initiated/Reviewed/Updated: Yes - My Orders Last 24 Hours: My Active Orders 09/21/17 09:50 Consult to Dietary [Consult to [employer]] [CONS] Routine - Plan Plan:: Assessment/plan: Acute: Abdominal Pain - Likely 2/2 Gastroenteritis - Reports abdominal discomfort rating 4/10 in epigastric region and across upper abdomen - Nausea, vomiting and diarrhea; dry heaves at this time - Diabetic type 1 for past 20 years has insulin pump - CT scan in [place] was negative per patient report; requested report from [place] - WBC - 7.18--> 4.29; Lipase 62; lactic acid 1.4; CRP <0.2 - NPO excepts chips and meds--> Clear liquid diet today - DDx: Gastroparesis (23 year hx/o DM1) Diabetes Type 1 w/ Hyperglycemia - Long standing hx/o ~21 years (diagnosed when he was 6 years old) - Insulin pump with glucose monitor checks randomly during the day. Does alarm with changes in his glucose - BS 242 in ED - Hypoglycemia on MSP 59 --> 40 basal rate 1.6 with bolus as needed. Glucose tab taken per patients own supply - IV fluids started D5W .9 NS @ 100 ml per hour. Refused d50 bolus because of hyperglycemia response - Glucose checks q6 hr; patient to use own insulin pump - Dietary Consult Resolved: Hypomagnesemia - 2/2 inadequate intake - Mag 1.2 replaced with 4 gm of magnesium-->2.1 - Monitor Labs Chronic: DM Type 1 w/ Peripheral Neuropathy GERD CKD stage II Plan: Admit to the Floor Routine AM Labs Resume Home Meds Clear liquids diet in AM if asymptomatic PRN anti-emesis Monitor for e-lytes abnormality Will obtain imaging studies in [facility] Goal: D/c once able to tolerate meals
--- NOTE | 2017-09-21 16:27 | PCM.DCSUM1 ---
<Marielos Kwok - Last Filed: 09/21/17 16:44> Discharge Summary - Hospital Course HPI Initial Comments: The patient states that he has type 1 diabetes. He is on an insulin pump, and Accu-Cheks 3-5 times a day with normal preprandial blood glucoses of 100-130 and normal postprandial blood glucoses around 170. He states that he developed nausea, vomiting, and watery diarrhea this past 09/16/2017. He was seen at an emergency department in [place], where a CT scan of the abdomen and pelvis was negative for appendicitis. He was given Zofran and Imodium, which he took for about 2 days. He states that he was able to return to work yesterday, 09/19/2017, however, last night he developed a small amount of nausea and emesis. This was much worse this morning. He has not had a fever, although he has had generalized abdominal pain associated with his emesis. He also developed a dry cough today, and commented that he had an increased volume of urine today. He has not had a bowel movement over the past 3 days. The patient states that he has had similar symptoms many times in the past, which essentially resolved after he had a cholecystectomy in 2014. He has had DKA in the past, and states that his current symptoms, other than the emesis, are not consistent with prior episodes of DKA. The patient's PCP is Jesika Story. His Breastfeeding Program Coordinator is Dr. Villalba, in [place]. - Discharge Data Discharge Date: 09/21/17 (admit on 09/20/17) Discharge Disposition: Home, Self-Care 01 Condition: Good - Discharge Diagnosis/Problem(s) (1) Diabetes type I SNOMED Code(s): 13449160 ICD Code: E10.9 - TYPE 1 DIABETES MELLITUS WITHOUT COMPLICATIONS Status: Chronic Priority: Medium Qualifiers: Diabetes mellitus complication status: with neurologic complications Diabetes mellitus complication detail: with unspecified neuropathy Qualified Code(s): E10.40 - Type 1 diabetes mellitus with diabetic neuropathy, unspecified (2) Hypomagnesemia SNOMED Code(s): 287870588 ICD Code: E83.42 - HYPOMAGNESEMIA Status: Acute Priority: Medium (3) Nausea & vomiting SNOMED Code(s): 90080523 ICD Code: R11.2 - NAUSEA WITH VOMITING, UNSPECIFIED Status: Acute Priority: High Qualifiers: Vomiting type: unspecified Vomiting Intractability: unspecified Qualified Code(s): R11.2 - Nausea with vomiting, unspecified (4) Abdominal pain SNOMED Code(s): 10777298 ICD Code: R10.9 - UNSPECIFIED ABDOMINAL PAIN Status: Acute Priority: High (5) 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 SNOMED Code(s): 72255869243194 ICD Code: E10.22 - TYPE 1 DIABETES MELLITUS W DIABETIC CHRONIC KIDNEY DISEASE ; N18.2 - CHRONIC KIDNEY DISEASE, STAGE 2 (MILD) Status: Chronic Priority: Medium - Patient Summary/Data Operative Procedure(s) Performed: none Complications: none Consults: Consultations 09/21/17 09:50 Consult to Dietary [Consult to Virtual Reality Specialist] [CONS] Routine Labs Pending at D/C: none Recommended Follow-up Testing/Procedures: Follow up with PCP in 7-10 days Planned Operative Procedure(s) after DC: none Hospital Course: Assessment/plan: Acute: Resolved: Diabetes Type 1 w/ Hyperglycemia - Long standing hx/o ~21 years (diagnosed when he was 6 years old) - Insulin pump with glucose monitor checks randomly during the day. Does alarm with changes in his glucose - BS 242 in ED--> 137 today - Hypoglycemia on MSP 59 --> 40 basal rate 1.6 with bolus as needed. Glucose tab taken per patients own supply - IV fluids started D5W .9 NS @ 100 ml per hour. Refused d50 bolus because of hyperglycemia response--> D/C today - Glucose checks q6 hr; patient to use own insulin pump Abdominal Pain, Resolved - Likely 2/2 Gastroenteritis - Reports abdominal discomfort rating 4/10 in epigastric region and across upper abdomen--> no pain today - Nausea, vomiting and diarrhea; dry heaves at this time--> no symptoms today - Diabetic type 1 for past 20 years has insulin pump - CT scan in [place] was negative per patient report; requested report from [place] - WBC - 7.18-->4.29; Lipase 62; lactic acid 1.4 - NPO excepts chips and meds--> Full liquid diet this AM - DDx: Gastroparesis (21 year hx/o DM1) Hypomagnesemia, Resolved - 2/2 inadequate intake - Mag 1.2 replaced with 4 gm of magnesium-->2.1 today - Monitor Labs Chronic: DM Type 1 w/ Peripheral Neuropathy GERD CKD stage II Plan: Admit to the Floor Routine AM Labs Resume Home Meds Clear liquids diet in AM if asymptomatic PRN anti-emesis Monitor for e-lytes abnormality Will obtain imaging studies in [facility] Goal: D/c once able to tolerate meals Gino has recovered quite well after being admitted for abdominal pain with nausea, vomiting and diarrhea. He had multiple tests done. All have been negative. CXR and EKG negative. Supportive care was given. This was most likely Gastroenteritis. He should follow-up with his primary care provider in 7-10 days. He was not discharged home on any new medications. He will be discharged home today. - Patient Instructions Diet: Usual Diet as Tolerated Activity: As Tolerated Driving: May Drive Today Showering/Bathing: May Shower Notify Provider of: Fever, Increased Pain, Nausea and/or Vomiting - Discharge Plan Patient Handouts: Viral Gastroenteritis, Adult, [id number], Nausea and Vomiting, Adult, [id number], Abdominal Pain, Adult, [id number], Type 1 Diabetes Mellitus, Self Care, Adult, [id number] Referrals: Mar Story, S[employer]IOR [employer] [Primary Care Provider] - - Discharge Summary/Plan Comment DC Time >30 min.: Yes (40min) - General Info Date of Service: 09/21/17 Admission Dx/Problem (Free Text: Gastroenteritis Functional Status: Reports: Pain Controlled, Tolerating Diet, Ambulating, Urinating - Review of Systems General: Reports: No Symptoms. Denies: Fever, Chills HEENT: Reports: No Symptoms Pulmonary: Reports: No Symptoms. Denies: Shortness of Breath, Cough Cardiovascular: Reports: No Symptoms. Denies: Chest Pain Gastrointestinal: Reports: No Symptoms. Denies: Abdominal Pain, Diarrhea, Nausea, Vomiting Genitourinary: Reports: No Symptoms Musculoskeletal: Reports: No Symptoms Skin: Reports: No Symptoms Neurological: Reports: No Symptoms Psychiatric: Reports: No Symptoms - Patient Data Vitals - Most Recent: Last Vital Signs Temp 97.9 F 09/21/17 11:49 Pulse 50 L 09/21/17 11:49 Resp 16 09/21/17 11:49 BP 121/60 09/21/17 11:49 Pulse Ox 99 09/21/17 11:49 Orthostatic Blood Pressure [ 146/85 Standing] Orthostatic Blood Pressure [ 142/93 Supine] Weight - Most Recent: 114.986 kg I&O - Last 24 hours: Intake & Output 09/21/17 09/21/17 09/21/17 06:59 14:59 22:59 Intake Total 1561 440 Output Total 900 Balance 661 440 Lab Results - Last 24 hrs: Laboratory Results - last 24 hr 09/20/17 09/20/17 09/21/17 Range/Units 17:02 21:43 06:12 WBC (4.23-9.07) K/mm3 RBC (4.63-6.08) M/mm3 Hgb (13.7-17.5) gm/L Hct (40.1-51.0) % MCV (79.0-92.2) fl MCH (25.7-32.2) pg MCHC (32.2-35.5) g/dl RDW Std Deviation (35.1-43.9) fL Plt Count (163-337) K/mm3 MPV (9.4-12.3) fl Neut % (Auto) (34.0-67.9) % Lymph % (Auto) (21.8-53.1) % [place] % (Auto) (5.3-12.2) % Eos % (Auto) (0.8-7.0) Baso % (Auto) (0.1-1.2) % Neut # (Auto) (1.78-5.38) K/mm3 Lymph # (Auto) (1.32-3.57) K/mm3 [place] # (Auto) (0.30-0.82) K/mm3 Eos # (Auto) (0.04-0.54) K/mm3 Baso # (Auto) (0.01-0.08) K/mm3 Sodium (136-145) mEq/L Potassium (3.5-5.1) mEq/L Chloride (98-107) mEq/L Carbon Dioxide (21-32) mEq/L Anion Gap (5-15) BUN (7-18) mg/dL Creatinine (0.7-1.3) mg/dL Est Cr Clr Drug Dosing mL/min Estimated GFR (MDRD) (>60) mL/min BUN/Creatinine Ratio (14-18) Glucose (74-106) mg/dL POC Glucose 109 H 93 115 H (70-105) mg/dL Calcium (8.5-10.1) mg/dL Magnesium (1.8-2.4) mg/dl C-Reactive Protein (<1.0) mg/dL 09/21/17 09/21/17 09/21/17 Range/Units 06:23 06:23 10:49 WBC 4.29 (4.23-9.07) K/mm3 RBC 4.52 L (4.63-6.08) M/mm3 Hgb 14.1 (13.7-17.5) gm/L Hct 40.3 (40.1-51.0) % MCV 89.2 (79.0-92.2) fl MCH 31.2 (25.7-32.2) pg MCHC 35.0 (32.2-35.5) g/dl RDW Std Deviation 38.4 (35.1-43.9) fL Plt Count 210 (163-337) K/mm3 MPV 11.2 (9.4-12.3) fl Neut % (Auto) 52.4 (34.0-67.9) % Lymph % (Auto) 35.7 (21.8-53.1) % [place] % (Auto) 9.8 (5.3-12.2) % Eos % (Auto) 1.4 (0.8-7.0) Baso % (Auto) 0.5 (0.1-1.2) % Neut # (Auto) 2.25 (1.78-5.38) K/mm3 Lymph # (Auto) 1.53 (1.32-3.57) K/mm3 [place] # (Auto) 0.42 (0.30-0.82) K/mm3 Eos # (Auto) 0.06 (0.04-0.54) K/mm3 Baso # (Auto) 0.02 (0.01-0.08) K/mm3 Sodium 141 (136-145) mEq/L Potassium 4.1 (3.5-5.1) mEq/L Chloride 110 H (98-107) mEq/L Carbon Dioxide 24 (21-32) mEq/L Anion Gap 11.1 (5-15) BUN 9 (7-18) mg/dL Creatinine 1.0 (0.7-1.3) mg/dL Est Cr Clr Drug Dosing 117.61 mL/min Estimated GFR (MDRD) > 60 (>60) mL/min BUN/Creatinine Ratio 9.0 L (14-18) Glucose 137 H (74-106) mg/dL POC Glucose 96 (70-105) mg/dL Calcium 8.7 (8.5-10.1) mg/dL Magnesium 2.1 (1.8-2.4) mg/dl C-Reactive Protein < 0.2 (<1.0) mg/dL CAL Results - Last 24 hrs: Microbiology 09/20/17 10:19 Aerobic Blood Culture - Preliminary Blood - Venous NO GROWTH AFTER 1 DAY Anaerobic Blood Culture - Preliminary NO GROWTH AFTER 1 DAY 09/20/17 10:38 Aerobic Blood Culture - Preliminary Blood - Venous - Lab Draw NO GROWTH AFTER 1 DAY Anaerobic Blood Culture - Preliminary NO GROWTH AFTER 1 DAY Med Orders - Current: Current Medications Acetaminophen (Tylenol) 650 mg PO Q4H PRN PRN Reason: Pain (Mild 1-3)/fever Hydrocodone Bitart/Acetaminophen ([place] 325-5 Mg) 1 tab PO Q4H PRN PRN Reason: Pain (moderate 4-6) Albuterol/Ipratropium (Duoneb 3.0-0.5 Mg/3 Ml) 3 ml NEB Q4H PRN PRN Reason: Shortness Of Breath/wheezing Dextrose/Water (Dextrose 50% In Water) 50 ml IVPUSH ASDIRECTED PRN PRN Reason: Hypoglycemia Famotidine (Pepcid) 20 mg PO DAILY PRN PRN Reason: HEARTBURN Hydralazine HCl (Apresoline) 20 mg IVPUSH Q4H PRN PRN Reason: Hypertension Hydromorphone HCl (Dilaudid) 0.5 mg IVPUSH Q2H PRN PRN Reason: Pain (severe 7-10) Promethazine HCl 12.5 mg/ (Sodium Chloride) 50.5 mls @ 100 mls/hr IV Q6H PRN PRN Reason: Nausea/Vomiting Insulin Aspart (Novolog) 0 unit SUBCUT ASDIRECTED [facility] Lorazepam (Ativan) 2 mg IVPUSH Q4H PRN PRN Reason: Seizures Magnesium Sulfate (Pharmacy To Dose - Magnesium Replacement) 1 dose .XX ASDIRECTED [facility] Ondansetron HCl (Zofran Odt) 4 mg PO Q8H PRN PRN Reason: NAUSEA Ondansetron HCl (Zofran) 4 mg IV Q6H PRN PRN Reason: Nausea/Vomiting Potassium Chloride (Pharmacy To Dose - Potassium Replacement) 1 dose .XX ASDIRECTED [facility] Temazepam (Restoril) 15 mg PO BEDTIME PRN PRN Reason: Sleep Last Admin: 09/20/17 21:49 Dose: 15 mg Discontinued Medications Dextrose/Water (Dextrose 50% In Water) Confirm Administered Dose 50 ml .ROUTE .STK-MED ONE Stop: 09/20/17 15:21 Last Admin: 09/20/17 15:48 Dose: Not Given Sodium Chloride (Normal Saline) 1,000 mls @ 999 mls/hr IV ONETIME ONE Stop: 09/20/17 10:46 Last Admin: 09/20/17 09:52 Dose: 999 mls/hr Magnesium Sulfate 2 gm/ Premix 50 mls @ 50 mls/hr IV ONETIME ONE Stop: 09/20/17 11:56 Last Admin: 09/20/17 11:03 Dose: 50 mls/hr Sodium Chloride (Normal Saline) 1,000 mls @ 999 mls/hr IV ONETIME ONE Stop: 09/20/17 13:23 Last Admin: 09/20/17 12:30 Dose: 999 mls/hr Dextrose/Sodium Chloride (Dextrose 5%-Normal Saline) 1,000 mls @ 100 mls/hr IV ASDIRECTED [facility] Last Admin: 09/21/17 01:21 Dose: 100 mls/hr Magnesium Sulfate 2 gm/ Premix 50 mls @ 25 mls/hr IV Q2H [facility] Stop: 09/20/17 19:29 Last Admin: 09/20/17 16:56 Dose: Not Given Ondansetron HCl (Zofran) 4 mg IVPUSH ONETIME ONE Stop: 09/20/17 09:46 Last Admin: 09/20/17 09:50 Dose: 4 mg Ondansetron HCl (Zofran) Confirm Administered Dose 4 mg .ROUTE .STK-MED ONE Stop: 09/20/17 09:54 Last Admin: 09/20/17 09:52 Dose: Not Given Pantoprazole Sodium (Protonix Iv) 40 mg IVPUSH ONETIME ONE Stop: 09/20/17 17:17 Last Admin: 09/20/17 17:52 Dose: 40 mg Scopolamine (Transderm-Scop) 1.5 mg TRDERM Q72H ONE Stop: 09/20/17 17:21 Last Admin: 09/20/17 17:50 Dose: 1.5 mg - Exam Quality Assessment: Reports: DVT Prophylaxis General: Reports: Alert, Oriented HEENT: Reports: Pupils Equal, Pupils Reactive, EOMI, Mucous Membr. Moist/[place] Neck: Reports: Supple Lungs: Reports: Clear to Auscultation, Normal Respiratory Effort Cardiovascular: Reports: Regular Rate, Regular Rhythm GI/Abdominal Exam: Normal Bowel Sounds, Soft, Non-Tender, No Organomegaly, No Distention, No Abnormal Bruit, No Mass, Pelvis Stable (Male) Exam: Deferred Rectal (Males) Exam: Deferred Back Exam: Reports: Normal Inspection, Full Range of Motion Extremities: Normal Inspection, Normal Range of Motion, Non-Tender, No Pedal Edema, Normal Capillary Refill Skin: Reports: Warm, Dry, Intact Neurological: Reports: No New Focal Deficit Psy/Mental Status: Reports: Alert, Normal Affect, Normal Mood <Yecenia Flores T - Last Filed: 09/21/17 18:23> Discharge Summary - Patient Summary/Data Consults: Consultations 09/21/17 09:50 Consult to Dietary [Consult to Virtual Reality Specialist] [CONS] Routine - Patient Data Vitals - Most Recent: Last Vital Signs Temp 36.7 C 09/21/17 16:01 Pulse 55 L 09/21/17 16:01 Resp 18 09/21/17 16:01 BP 120/72 09/21/17 16:01 Pulse Ox 100 09/21/17 16:01 Orthostatic Blood Pressure [ 146/85 Standing] Orthostatic Blood Pressure [ 142/93 Supine] I&O - Last 24 hours: Intake & Output 09/21/17 09/21/17 09/21/17 06:59 14:59 22:59 Intake Total 2552 403 9166 Output Total 900 1200 Balance 661 440 600 Lab Results - Last 24 hrs: Laboratory Results - last 24 hr 09/20/17 09/21/17 09/21/17 Range/Units 21:43 06:12 06:23 WBC 4.29 (4.23-9.07) K/mm3 RBC 4.52 L (4.63-6.08) M/mm3 Hgb 14.1 (13.7-17.5) gm/L Hct 40.3 (40.1-51.0) % MCV 89.2 (79.0-92.2) fl MCH 31.2 (25.7-32.2) pg MCHC 35.0 (32.2-35.5) g/dl RDW Std Deviation 38.4 (35.1-43.9) fL Plt Count 210 (163-337) K/mm3 MPV 11.2 (9.4-12.3) fl Neut % (Auto) 52.4 (34.0-67.9) % Lymph % (Auto) 35.7 (21.8-53.1) % [place] % (Auto) 9.8 (5.3-12.2) % Eos % (Auto) 1.4 (0.8-7.0) Baso % (Auto) 0.5 (0.1-1.2) % Neut # (Auto) 2.25 (1.78-5.38) K/mm3 Lymph # (Auto) 1.53 (1.32-3.57) K/mm3 [place] # (Auto) 0.42 (0.30-0.82) K/mm3 Eos # (Auto) 0.06 (0.04-0.54) K/mm3 Baso # (Auto) 0.02 (0.01-0.08) K/mm3 Sodium (136-145) mEq/L Potassium (3.5-5.1) mEq/L Chloride (98-107) mEq/L Carbon Dioxide (21-32) mEq/L Anion Gap (5-15) BUN (7-18) mg/dL Creatinine (0.7-1.3) mg/dL Est Cr Clr Drug Dosing mL/min Estimated GFR (MDRD) (>60) mL/min BUN/Creatinine Ratio (14-18) Glucose (74-106) mg/dL POC Glucose 93 115 H (70-105) mg/dL Calcium (8.5-10.1) mg/dL Magnesium (1.8-2.4) mg/dl C-Reactive Protein (<1.0) mg/dL 09/21/17 09/21/17 Range/Units 06:23 10:49 WBC (4.23-9.07) K/mm3 RBC (4.63-6.08) M/mm3 Hgb (13.7-17.5) gm/L Hct (40.1-51.0) % MCV (79.0-92.2) fl MCH (25.7-32.2) pg MCHC (32.2-35.5) g/dl RDW Std Deviation (35.1-43.9) fL Plt Count (163-337) K/mm3 MPV (9.4-12.3) fl Neut % (Auto) (34.0-67.9) % Lymph % (Auto) (21.8-53.1) % [place] % (Auto) (5.3-12.2) % Eos % (Auto) (0.8-7.0) Baso % (Auto) (0.1-1.2) % Neut # (Auto) (1.78-5.38) K/mm3 Lymph # (Auto) (1.32-3.57) K/mm3 [place] # (Auto) (0.30-0.82) K/mm3 Eos # (Auto) (0.04-0.54) K/mm3 Baso # (Auto) (0.01-0.08) K/mm3 Sodium 141 (136-145) mEq/L Potassium 4.1 (3.5-5.1) mEq/L Chloride 110 H (98-107) mEq/L Carbon Dioxide 24 (21-32) mEq/L Anion Gap 11.1 (5-15) BUN 9 (7-18) mg/dL Creatinine 1.0 (0.7-1.3) mg/dL Est Cr Clr Drug Dosing 117.61 mL/min Estimated GFR (MDRD) > 60 (>60) mL/min BUN/Creatinine Ratio 9.0 L (14-18) Glucose 137 H (74-106) mg/dL POC Glucose 96 (70-105) mg/dL Calcium 8.7 (8.5-10.1) mg/dL Magnesium 2.1 (1.8-2.4) mg/dl C-Reactive Protein < 0.2 (<1.0) mg/dL CAL Results - Last 24 hrs: Microbiology 09/20/17 10:19 Aerobic Blood Culture - Preliminary Blood - Venous NO GROWTH AFTER 1 DAY Anaerobic Blood Culture - Preliminary NO GROWTH AFTER 1 DAY 09/20/17 10:38 Aerobic Blood Culture - Preliminary Blood - Venous - Lab Draw NO GROWTH AFTER 1 DAY Anaerobic Blood Culture - Preliminary NO GROWTH AFTER 1 DAY Med Orders - Current: Current Medications Discontinued Medications Acetaminophen (Tylenol) 650 mg PO Q4H PRN PRN Reason: Pain (Mild 1-3)/fever Hydrocodone Bitart/Acetaminophen ([place] 325-5 Mg) 1 tab PO Q4H PRN PRN Reason: Pain (moderate 4-6) Albuterol/Ipratropium (Duoneb 3.0-0.5 Mg/3 Ml) 3 ml NEB Q4H PRN PRN Reason: Shortness Of Breath/wheezing Dextrose/Water (Dextrose 50% In Water) 50 ml IVPUSH ASDIRECTED PRN PRN Reason: Hypoglycemia Dextrose/Water (Dextrose 50% In Water) Confirm Administered Dose 50 ml .ROUTE .STK-MED ONE Stop: 09/20/17 15:21 Last Admin: 09/20/17 15:48 Dose: Not Given Famotidine (Pepcid) 20 mg PO DAILY PRN PRN Reason: HEARTBURN Hydralazine HCl (Apresoline) 20 mg IVPUSH Q4H PRN PRN Reason: Hypertension Hydromorphone HCl (Dilaudid) 0.5 mg IVPUSH Q2H PRN PRN Reason: Pain (severe 7-10) Sodium Chloride (Normal Saline) 1,000 mls @ 999 mls/hr IV ONETIME ONE Stop: 09/20/17 10:46 Last Admin: 09/20/17 09:52 Dose: 999 mls/hr Magnesium Sulfate 2 gm/ Premix 50 mls @ 50 mls/hr IV ONETIME ONE Stop: 09/20/17 11:56 Last Admin: 09/20/17 11:03 Dose: 50 mls/hr Sodium Chloride (Normal Saline) 1,000 mls @ 999 mls/hr IV ONETIME ONE Stop: 09/20/17 13:23 Last Admin: 09/20/17 12:30 Dose: 999 mls/hr Dextrose/Sodium Chloride (Dextrose 5%-Normal Saline) 1,000 mls @ 100 mls/hr IV ASDIRECTED [facility] Last Admin: 09/21/17 01:21 Dose: 100 mls/hr Magnesium Sulfate 2 gm/ Premix 50 mls @ 25 mls/hr IV Q2H [facility] Stop: 09/20/17 19:29 Last Admin: 09/20/17 16:56 Dose: Not Given Promethazine HCl 12.5 mg/ (Sodium Chloride) 50.5 mls @ 100 mls/hr IV Q6H PRN PRN Reason: Nausea/Vomiting Insulin Aspart (Novolog) 0 unit SUBCUT ASDIRECTED [facility] Lorazepam (Ativan) 2 mg IVPUSH Q4H PRN PRN Reason: Seizures Magnesium Sulfate (Pharmacy To Dose - Magnesium Replacement) 1 dose .XX ASDIRECTED [facility] Ondansetron HCl (Zofran) 4 mg IVPUSH ONETIME ONE Stop: 09/20/17 09:46 Last Admin: 09/20/17 09:50 Dose: 4 mg Ondansetron HCl (Zofran) Confirm Administered Dose 4 mg .ROUTE .STK-MED ONE Stop: 09/20/17 09:54 Last Admin: 09/20/17 09:52 Dose: Not Given Ondansetron HCl (Zofran Odt) 4 mg PO Q8H PRN PRN Reason: NAUSEA Ondansetron HCl (Zofran) 4 mg IV Q6H PRN PRN Reason: Nausea/Vomiting Pantoprazole Sodium (Protonix Iv) 40 mg IVPUSH ONETIME ONE Stop: 09/20/17 17:17 Last Admin: 09/20/17 17:52 Dose: 40 mg Potassium Chloride (Pharmacy To Dose - Potassium Replacement) 1 dose .XX ASDIRECTED [facility] Scopolamine (Transderm-Scop) 1.5 mg TRDERM Q72H ONE Stop: 09/20/17 17:21 Last Admin: 09/20/17 17:50 Dose: 1.5 mg Temazepam (Restoril) 15 mg PO BEDTIME PRN PRN Reason: Sleep Last Admin: 09/20/17 21:49 Dose: 15 mg
[2017-09-21 17:27] VITALS: BP 120/72
== END 2017-09-21 17:43 | disposition home or self-care (01) ==
LOC: JD.ED 09:07 → JD.MS 12:58
PROVIDERS: ADMIT Internal Medicine; ATTEND Internal Medicine
DX: R10.13 Epigastric pain (principal); R11.2 Nausea with vomiting, unspecified; E83.42 Hypomagnesemia; E10.22 Type 1 diabetes mellitus with diabetic chronic kidney disease; N18.2 Chronic kidney disease, stage 2 (mild); E10.65 Type 1 diabetes mellitus with hyperglycemia; E10.42 Type 1 diabetes mellitus with diabetic polyneuropathy; K21.9 Gastro-esophageal reflux disease without esophagitis; Z79.899 Other long term (current) drug therapy; E66.9 Obesity, unspecified; Z68.30 Body mass index [BMI] 30.0-30.9, adult; Z96.41 Presence of insulin pump (external) (internal); Z79.4 Long term (current) use of insulin; Z90.49 Acquired absence of other specified parts of digestive tract
CPT/HCPCS: 36415; 36600; 71045; 80048; 80053; 81001; 82009; 82803; 82962; 83036; 83605; 83690; 83735; 85025; 86140; 87040; 93005; 96361; 96365; 96375; 99285; A9270; C9113; J2405; J7040; J7042; 93010; 96366; 99217; 99219; G0378; J3475

== ENCOUNTER 2021-05-08 07:42 | Emergency (ER) | payer BC, OTHER ==
[2021-05-08 07:56] VITALS: BP 132/85; PULSE 90
[2021-05-08] MEDS ORDERED: Ondansetron 4 MG/2 ML SDV IVPUSH ONE (07:56)
[2021-05-08] MEDS ORDERED: Sodium Chloride 0.9% 10 ML Syringe FLUSH PRN (07:56)
[2021-05-08] MEDS ORDERED: HYDROmorphone 1 MG/ML Syringe IVPUSH ONE (07:57)
[2021-05-08] MEDS ORDERED: Sodium Chloride 0.9% 1,000 ML IV SCH (08:00)
--- NOTE | 2021-05-08 08:22 | EDM.PDOC ---
ED HPI GENERAL MEDICAL PROBLEM - General Chief Complaint: Gastrointestinal Problem Stated Complaint: VOMITING Time Seen by Provider: 05/08/21 07:50 Source of Information: Reports: Patient History Limitations: Reports: No Limitations - History of Present Illness INITIAL COMMENTS - FREE TEXT/NARRATIVE: The patient presents with nausea, vomiting and diarrhea. This started last ni ght. His was sick a couple nights ago. He has generalized body aches. He is type I diabetic and he has an insulin pump and CGM. His blood sugar is in the 150s. He has no fever, chills, cough, chest pain or shortness of breath. Onset: Gradual Duration: Hour(s): Location: Reports: Generalized Quality: Reports: Ache Severity: Moderate Improves with: Reports: None Worsens with: Reports: None Associated Symptoms: Reports: Nausea/Vomiting. Denies: Chest Pain, Cough, Fever/Chills, Headaches, Shortness of Breath Abdominal Pain Score (Numeric/FACES): 4 - Related Data Allergies Allergy/AdvReac Type Severity Reaction Status Date / Time No Known Allergies Allergy Verified 05/08/21 07:51 Home Meds: Home Meds Escitalopram Oxalate [Lexapro] 10 mg PO DAILY 05/08/21 [History] Insulin Lispro [Humalog Kwikpen U-200] 200 unit SQ ASDIRECTED 05/08/21 [History] Past Medical History HEENT History: Reports: Impaired Vision, Other (See Below) Other HEENT History: glasses Respiratory History: Reports: None Gastrointestinal History: Reports: GERD Musculoskeletal History: Reports: Fracture, Other (See Below) Other Musculoskeletal History: 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; right foot fracture Neurological History: Reports: Concussion, Neuropathy, Diabetic Psychiatric History: Reports: Depression Endocrine/Metabolic History: Reports: Diabetes, Type I, Obesity/BMI 30+ Hematologic History: Reports: None Dermatologic History: Reports: Other (See Below) Other Dermatologic History: vitiligo - Infectious Disease History Infectious Disease History: Reports: Shingles - Past Surgical History HEENT Surgical History: Reports: Myringotomy w Tube(s) (bilateral), Tonsillectomy GI Surgical History: Reports: Cholecystectomy (09/02/2014) Musculoskeletal Surgical History: Reports: Other (See Below) (Partial amputation right fifth finger) - Past Imaging History Past Imaging History: Reports: CAT Scan (CT of abdomen and pelvis in [place]) Social & Family History - Family History Cardiac: Reports: Aneurysm, Hypertension, Other (See Below) Other Cardiac Family History: abdominal - Caffeine Use Caffeine Use: Reports: Tea - Living Situation & Occupation Living situation: Reports: , with Spouse 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 Denies: Abdominal Pain : Reports: No Symptoms Musculoskeletal: Reports: Muscle Pain ED EXAM, GI/ABD - Physical Exam Exam: See Below Exam Limited By: No Limitations General Appearance: Alert, No Apparent Distress Ears: Normal External Exam Nose: Normal Inspection Head: Atraumatic, Normocephalic Neck: Normal Inspection Respiratory/Chest: No Respiratory Distress, Lungs Clear, Normal Breath Sounds Cardiovascular: Regular Rate, Rhythm, No Edema, No Murmur GI/Abdominal Exam: Soft, Non-Tender, No Organomegaly, No Mass Back Exam: Normal Inspection Extremities: Normal Inspection Course - Vital Signs Last Recorded V/S: Last Vital Signs Temp 95.2 F L 05/08/21 07:51 Pulse 90 05/08/21 07:51 Resp 16 05/08/21 07:51 BP 132/85 05/08/21 07:51 Pulse Ox 99 05/08/21 07:51 - Orders/Labs/Meds Orders: Active Orders 24 hr Category Date Time Status Cardiac Monitoring [RC] . DIRECTED Care 05/08/21 07:56 Active Peripheral IV Care [RC] . DIRECTED Care 05/08/21 07:56 Active Sodium Chloride 0.9% [Normal Saline] 1,000 ml Med 05/08/21 08:00 Active IV .BOLUS Sodium Chloride 0.9% [Saline Flush] Med 05/08/21 07:56 Active 10 ml FLUSH ASDIRECTED PRN ED Antiemetic Medication Reflex [OM.PC] Stat Oth 05/08/21 07:56 Ordered Peripheral IV Insertion Adult [OM.PC] Stat Oth 05/08/21 07:56 Ordered Medication Orders Sodium Chloride (Normal Saline) 1,000 mls @ 1,000 mls/hr IV .BOLUS TOM Last Admin: 11/28/21 08:19 Dose: 1,000 mls/hr Documented by: MICHAEL Sodium Chloride (Sodium Chloride 0.9% 10 Ml Syringe) 10 ml FLUSH ASDIRECTED PRN PRN Reason: Keep Vein Open Last Admin: 05/08/21 08:19 Dose: 10 ml Documented by: MICHAEL Labs: Laboratory Tests 05/08/21 05/08/21 05/08/21 Range/Units 07:58 08:10 08:10 WBC 11.27 H (4.23-9.07) K/mm3 RBC 5.71 (4.63-6.08) M/mm3 Hgb 17.4 D (13.7-17.5) gm/dl Hct 50.1 (40.1-51.0) % MCV 87.7 (79.0-92.2) fl MCH 30.5 (25.7-32.2) pg MCHC 34.7 (32.2-35.5) g/dl RDW Std Deviation 40.1 (35.1-43.9) fL Plt Count 224 (163-337) K/mm3 MPV 11.9 (9.4-12.3) fl Neut % (Auto) 91.6 H (34.0-67.9) % Lymph % (Auto) 2.8 L (21.8-53.1) % [place] % (Auto) 4.9 L (5.3-12.2) % Eos % (Auto) 0.3 L (0.8-7.0) Baso % (Auto) 0.2 (0.1-1.2) % Neut # (Auto) 10.33 H (1.78-5.38) K/mm3 Lymph # (Auto) 0.32 L (1.32-3.57) K/mm3 [place] # (Auto) 0.55 (0.30-0.82) K/mm3 Eos # (Auto) 0.03 L (0.04-0.54) K/mm3 Baso # (Auto) 0.02 (0.01-0.08) K/mm3 VBG pH 7.45 H (7.30-7.40) Sodium 155 H D (136-145) mEq/L Potassium 4.4 (3.5-5.1) mEq/L Chloride 116 H (98-107) mEq/L Carbon Dioxide 24 (21-32) mEq/L Anion Gap 19.4 H (5-15) BUN 29 H (7-18) mg/dL Creatinine 1.1 (0.7-1.3) mg/dL Est Cr Clr Drug Dosing 106.48 mL/min Estimated GFR (MDRD) > 60 (>60) mL/min BUN/Creatinine Ratio 26.4 H (14-18) Glucose 199 H (70-99) mg/dL Serum Osmolality 311 H (280-300) mosm/kg Calcium 9.4 (8.5-10.1) mg/dL Total Bilirubin 1.1 H (0.2-1.0) mg/dL AST 16 (15-37) U/L ALT 30 (16-63) U/L Alkaline Phosphatase 68 (46-116) U/L Total Protein 8.0 (6.4-8.2) g/dl Albumin 4.5 (3.4-5.0) g/dl Globulin 3.5 gm/dL Albumin/Globulin Ratio 1.3 (1-2) Lipase 48 L (73-393) U/L Ketones (0.0-0.3) mM SARS-CoV-2 RNA (MICHELINE) (NEGATIVE) 05/08/21 05/08/21 Range/Units 08:10 08:10 WBC (4.23-9.07) K/mm3 RBC (4.63-6.08) M/mm3 Hgb (13.7-17.5) gm/dl Hct (40.1-51.0) % MCV (79.0-92.2) fl MCH (25.7-32.2) pg MCHC (32.2-35.5) g/dl RDW Std Deviation (35.1-43.9) fL Plt Count (163-337) K/mm3 MPV (9.4-12.3) fl Neut % (Auto) (34.0-67.9) % Lymph % (Auto) (21.8-53.1) % [place] % (Auto) (5.3-12.2) % Eos % (Auto) (0.8-7.0) Baso % (Auto) (0.1-1.2) % Neut # (Auto) (1.78-5.38) K/mm3 Lymph # (Auto) (1.32-3.57) K/mm3 [place] # (Auto) (0.30-0.82) K/mm3 Eos # (Auto) (0.04-0.54) K/mm3 Baso # (Auto) (0.01-0.08) K/mm3 VBG pH (7.30-7.40) Sodium (136-145) mEq/L Potassium (3.5-5.1) mEq/L Chloride (98-107) mEq/L Carbon Dioxide (21-32) mEq/L Anion Gap (5-15) BUN (7-18) mg/dL Creatinine (0.7-1.3) mg/dL Est Cr Clr Drug Dosing mL/min Estimated GFR (MDRD) (>60) mL/min BUN/Creatinine Ratio (14-18) Glucose (70-99) mg/dL Serum Osmolality (280-300) mosm/kg Calcium (8.5-10.1) mg/dL Total Bilirubin (0.2-1.0) mg/dL AST (15-37) U/L ALT (16-63) U/L Alkaline Phosphatase (46-116) U/L Total Protein (6.4-8.2) g/dl Albumin (3.4-5.0) g/dl Globulin gm/dL Albumin/Globulin Ratio (1-2) Lipase (73-393) U/L Ketones 0.38 (0.0-0.3) mM SARS-CoV-2 RNA (MICHELINE) Negative (NEGATIVE) Meds: Medications Generic Name Dose Route Start Last Admin Trade Name Fresalud PRN Reason Stop Dose Admin Sodium Chloride 1,000 mls @ 1,000 mls/hr 05/08/21 08:00 05/08/21 08:19 Normal Saline IV 1,000 mls/hr .BOLUS TOM Administration Sodium Chloride 10 ml 05/08/21 07:56 05/08/21 08:19 Sodium Chloride 0.9% 10 Ml Syringe FLUSH 10 ml ASDIRECTED PRN Administration Keep Vein Open Discontinued Medications Generic Name Dose Route Start Last Admin Trade Name Freq PRN Reason Stop Dose Admin Hydromorphone HCl 1 mg 05/08/21 07:57 05/08/21 08:25 Hydromorphone 1 Mg/Ml Syringe IVPUSH 05/08/21 07:58 1 mg ONETIME ONE Administration Lactated Ringer's 1,000 mls @ 1,000 mls/hr 05/08/21 09:45 05/08/21 10:09 Ringers, Lactated IV 05/08/21 10:44 1,000 mls/hr .BOLUS ONE Administration Metoclopramide HCl 10 mg 05/08/21 09:44 05/08/21 10:10 Metoclopramide 10 Mg/2 Ml Sdv IVPUSH 05/08/21 09:45 10 mg ONETIME ONE Administration Ondansetron HCl 4 mg 05/08/21 07:56 05/08/21 08:23 Ondansetron 4 Mg/2 Ml Sdv IVPUSH 05/08/21 07:57 4 mg ONETIME ONE Administration - Re-Assessments/Exams Free Text/Narrative Re-Assessment/Exam: 05/08/21 08:21 I ordered an IV NS 1L bolus, zofran 4mg IV, labs, UA, venous pH and ketones. 05/08/21 08:22 I have also checked him for COVID. 05/08/21 11:19 His COVID is negative. His WBC was slightly elevated at 11.27. His pH was elevated at 7.45. His Na was high at 155. His anion gap was elevated at 19.4. His glucose was elevated at 199. His serum osmolality was elevated at 311. His total bili was elevated at 1.1. His lipase was low. His ketones were 0.38. He is not in DKA. He still had some nausea so I gave him reglan 10mg IV and a liter or LR. He feels good now. He did have some ice chips. I will get him some zofran. Departure - Departure Time of Disposition: 11:25 Disposition: Home, Self-Care 01 Condition: Good Clinical Impression: Viral gastroenteritis - Discharge Information *PRESCRIPTION DRUG MONITORING PROGRAM REVIEWED*: Not Applicable *COPY OF PRESCRIPTION DRUG MONITORING REPORT IN PATIENT EVELYN: Not Applicable Referrals: Connie Lindsey PA-C [Primary Care Provider] - Forms: ED Department Discharge Additional Instructions: Drink plenty of fluids like water, powerade, or gatorade. Try some light food this afternoon. Take the zofran every 6 hours as needed for nausea and vomiting. Please return if you are worse. Sepsis Event Note (ED) - Focused Exam Vital Signs: Vital Signs Temp Pulse Resp BP Pulse Ox 05/08/21 07:51 95.2 F L 90 16 132/85 99 - My Orders Last 24 Hours: My Active Orders 05/08/21 07:56 Cardiac Monitoring [RC] . DIRECTED Peripheral IV Care [RC] . DIRECTED Sodium Chloride 0.9% [Saline Flush] 10 ml FLUSH ASDIRECTED PRN ED Antiemetic Medication Reflex [OM.PC] Stat Peripheral IV Insertion Adult [OM.PC] Stat 05/08/21 08:00 Sodium Chloride 0.9% [Normal Saline] 1,000 ml IV .BOLUS - Assessment/Plan Last 24 Hours: My Active Orders 05/08/21 07:56 Cardiac Monitoring [RC] . DIRECTED Peripheral IV Care [RC] . DIRECTED Sodium Chloride 0.9% [Saline Flush] 10 ml FLUSH ASDIRECTED PRN ED Antiemetic Medication Reflex [OM.PC] Stat Peripheral IV Insertion Adult [OM.PC] Stat 05/08/21 08:00 Sodium Chloride 0.9% [Normal Saline] 1,000 ml IV .BOLUS
[2021-05-08] MEDS ORDERED: Metoclopramide 10 MG/2 ML SDV IVPUSH ONE (09:44)
[2021-05-08] MEDS ORDERED: Lactated Ringers 1,000 ML IV ONE (09:45)
== END 2021-05-08 11:47 | disposition home or self-care (01) ==
LOC: JD.ED 07:42
DX: A08.4 Viral intestinal infection, unspecified (principal); E10.40 Type 1 diabetes mellitus with diabetic neuropathy, unspecified; K21.9 Gastro-esophageal reflux disease without esophagitis; E66.9 Obesity, unspecified; Z68.39 Body mass index [BMI] 39.0-39.9, adult; Z20.822 Contact with and (suspected) exposure to COVID-19
CPT/HCPCS: 36415; 80053; 82009; 82800; 83690; 83930; 85025; 87635; 96374; 96375; 99284; J1170; J2405; J2765; J7030; J7120; U0002